=== PATIENT | female | born 1970 | race Caucasian/White ===

== ENCOUNTER 2023-02-11 10:18 | Emergency (ER) | payer OTHER ==
[~2023-02-11] VITALS: Ht 177.8 cm; Wt 62.3 kg
[2023-02-11] MEDS ORDERED: BUPRENORPHINE HCL/NALOXONE HCL 8-2 MG SUBLINGUAL TABLET SL ONE (10:30)
[2023-02-11] MEDS ORDERED: BUPR1FIL7 SL (10:30)
[2023-02-11] MEDS ORDERED: ONDANSETRON HCL 4 MG TABLET PO ONE (10:30)
[2023-02-11 11:33] VITALS: BP 130/81
== END 2023-02-11 12:02 | disposition home or self-care (01) ==
LOC: EMS 10:21
DX: F11.23 Opioid dependence with withdrawal (principal)
CPT/HCPCS: 99283; Q0162

== ENCOUNTER 2023-02-12 07:50 | Emergency (ER) | payer OTHER ==
[~2023-02-12] VITALS: Ht 172.7 cm; Wt 63.6 kg
[~2023-02-12 07:50] MED LIST: BUPR1FIL7 SL
[2023-02-12] MEDS ORDERED: BUPRENORPHINE HCL/NALOXONE HCL 8-2 MG SUBLINGUAL TABLET SL ONE (08:15)
[2023-02-12 10:00] VITALS: BP 146/97
== END 2023-02-12 10:22 | disposition home or self-care (01) ==
LOC: EMS 07:50
DX: F11.20 Opioid dependence, uncomplicated (principal); F11.23 Opioid dependence with withdrawal; F17.210 Nicotine dependence, cigarettes, uncomplicated
CPT/HCPCS: 99281